=== PATIENT | female | born 1965 | race African-American/Black ===

== ENCOUNTER 2017-05-01 23:28 | Emergency (ER) | payer OTHER ==
[~2017-05-01] VITALS: Ht 165.1 cm; Wt 117.0 kg
[~2017-05-01 23:28] MED LIST: AMLO10TA80 PO; HYDR25TA PO; LOSA50TA20 PO
[2017-05-01 23:41] VITALS: BP 178/97
[2017-05-02] MEDS ORDERED: PREDNISONE 20MG TABLET PO ONE (01:15)
== END 2017-05-02 07:26 | disposition home or self-care (01) ==
LOC: ER 05-02 07:15
DX: L25.9 Unspecified contact dermatitis, unspecified cause (principal); I10 Essential (primary) hypertension; Z88.8 Allergy status to other drugs, medicaments and biological substances
CPT/HCPCS: 99283; J7512

== ENCOUNTER 2017-05-11 09:26 | Emergency (ER) | payer OTHER ==
[~2017-05-11] VITALS: Ht 165.1 cm; Wt 117.0 kg
[2017-05-11 10:03] VITALS: BP 176/107
== END 2017-05-11 16:35 | disposition left against medical advice (07) ==
LOC: ER 10:22
DX: R22.1 Localized swelling, mass and lump, neck (principal); Z53.21 Procedure and treatment not carried out due to patient leaving prior to being seen by health care provider

== ENCOUNTER 2022-10-25 21:33 | Emergency (ER) | payer OTHER ==
[~2022-10-25] VITALS: Ht 165.1 cm; Wt 113.6 kg
[~2022-10-25 21:33] MED LIST changes: -LOSA50TA20 PO; +LOSA50TA41 PO
[2022-10-25 22:52] VITALS: BP 173/105; PULSE 87; RESP 16; TEMP 98.6; O2SAT 99
[2022-10-25 23:05] LABS: BASOPHILS % 0.9 % (0.0-2.0); EOSINOPHILS % 2.1 % (0.0-5.0); HEMATOCRIT. 36.5 % (36.0-48.0); HEMOGLOBIN. 12.3 g/dL (12.0-16.0); MEAN CORPUSCULAR HEMOGLOBIN 27.7 pg (28.0-32.0); MEAN PLATELET VOLUME 7.2 fl (7.4-10.4); MONOCYTES % 8.5 % (2.0-8.0); NEUTROPHILS % 48.5 % (40.0-76.0); PLATELET 411 x1000/uL (130-400); RED BLOOD CELL COUNT 4.45 mill/uL (4.2-5.4); RED CELL DISTRIBUTION WIDTH 15.4 % (11.6-14.6)
[2022-10-25 23:19] LABS: CHLORIDE 108 mEq/L (98-107)
== END 2022-10-26 01:28 | disposition left against medical advice (07) ==
LOC: ER 21:33
DX: Z53.21 Procedure and treatment not carried out due to patient leaving prior to being seen by health care provider (principal); I49.9 Cardiac arrhythmia, unspecified
CPT/HCPCS: 36415; 80053; 85025; 93005; 99281

== ENCOUNTER 2023-01-06 19:36 | Emergency (ER) | payer OTHER ==
[~2023-01-06] VITALS: Ht 165.1 cm; Wt 111.0 kg
[2023-01-06 20:04] VITALS: BP 154/94; PULSE 95; RESP 18; TEMP 98.6; O2SAT 99
[2023-01-06 22:27] LABS: CLARITY URINE CLOUDY (CLEAR); COLOR URINE YELLOW (YELLOW); GLUCOSE URINE NEGATIVE (NEGATIVE); KETONES URINE NEGATIVE (NEGATIVE); LEUKOCYTE ESTERASE URINE NEGATIVE (NEGATIVE); NITRITE URINE NEGATIVE (NEGATIVE); OCCULT BLOOD URINE 2+ (NEGATIVE); PH URINE 5.5 (4.5-8.0); PROTEIN URINE TRACE (NEGATIVE); SPECIFIC GRAVITY URINE 1.027 (1.005-1.030)
[2023-01-06 22:33] LABS: BACTERIA URINE NONE SEEN; SQUAMOUS EPITHELIAL CELL URINE 1+ /lpf (RARE/1+); WBC URINE 0-2 /hpf (0-2); YEAST URINE NONE SEEN
[2023-01-07] MEDS ORDERED: METR-167 MT (01:10)
[2023-01-07] MEDS ORDERED: NAPR-1176 MT (01:10)
[2023-01-07] MEDS ORDERED: AMOX1TAB16 MT (01:10)
== END 2023-01-07 01:13 | disposition home or self-care (01) ==
LOC: ER 19:36
DX: K52.9 Noninfective gastroenteritis and colitis, unspecified (principal); I10 Essential (primary) hypertension; Z98.51 Tubal ligation status; Z98.890 Other specified postprocedural states; Z91.040 Latex allergy status; Z88.8 Allergy status to other drugs, medicaments and biological substances
CPT/HCPCS: 74176; 81003; 99284